=== PATIENT | male | born 1990 | race American Indian/Alaskan Native ===

== ENCOUNTER 2018-11-02 22:48 | Emergency (ER) | payer SELFPAY ==
[2018-11-02 23:38] VITALS: BP 129/67
--- NOTE | 2018-11-03 00:02 | XRay Report ---
FINAL REPORT EXAM: XR CHEST ROUTINE 2V HISTORY: SOB TECHNIQUE: PA and lateral views of the chest were submitted. FINDINGS: The heart size and mediastinum appear normal. There is very mild interstitial prominence with slight thickening of the fissures. There are no localized infiltrates or effusions. The skeletal structures reveal a dextroscoliosis of the lower thoracic spine. IMPRESSION: Mild interstitial prominence with slight thickening of the fissures. Interstitial edema cannot be exc luded. No localized infiltrates otherwise.
[2018-11-03 00:09] LABS: Hematocrit 40.2 % (35.5-45.6); Hemoglobin 13.5 gm/dl (11.8-15.2); Mean Corpuscular HGB Conc 34 % (32-34); Mean Corpuscular Volume 89 fl (84-94); Platelet Count 214 K/mm3 (140-440); Red Blood Count 4.53 M/mm3 (3.65-5.03); Red Cell Distribution Width 13.2 % (13.2-15.2)
--- NOTE | 2018-11-03 00:15 | Emergency Department Report ---
ED Chest Pain HPI - General Chief Complaint: Chest Pain Stated Complaint: SORE THROAT CX PAIN Time Seen by Provider: 11/03/18 00:11 Source: patient Mode of arrival: Ambulatory Limitations: No Limitations - History of Present Illness Initial Comments: This is a 28-year-old male here reports that he is having upper chest pain feels like pressure with shortness of breath 1 month. He said chest pain moves up to front of neck. Chest pain is located mid anterior sternal area. He said it feels sharp and it 6 out of 10 and he said he feels like he cannot breathe and this is been going on for 1 month. Denies any history of blood clots, clotting disorder. Denies any long distance travel by airplane or car for 4 more hours. Denies any swelling to lower extremities. Denies any nausea vomiting, fever or chills. Denies any cough. Denies any medical problems. Denies headache but reports that he went to urgent care, please go and do treat him with doxycycline for respiratory infection but they did not do a chest x-ray. He said since he started taking the doxycycline he started having a runny nose. He denies any back pain or neck pain. Denies any sore throat or earache. No exacerbating or alleviating factor with chest pain. Denies immunocompromise status. Denies any night sweats, coughing up blood, significant weight loss of 20 pounds or more over the last 1-2 months. MD Complaint: chest pain, other (shortness of breath) Onset/Timin -: month(s) Onset: during rest, during exertion Pain Location: substernal Pain Radiation: neck Severity scale (0 -10): 6 Quality: pressure Consistency: intermittent Improves With: nothing Worsens With: nothing Context: other (unknown cause) re: denies: nausea, vomting, diaphoresis, dyspnea, sense of impending doom Other Symptoms: fever (fever a few days ago). denies: cough, syncope, rash, acid taste in mouth, leg swelling, palpitations, burping Treatments Prior to Arrival: other (doxycycline) - Related Data On Oral Contraceptives: No Previous Rx's Medication Instructions Recorded Last Taken Type Cetirizine HCl [ZyrTEC] 10 mg PO QAM 14 Days #14 capsule 11/03/18 Unknown Rx Allergies Allergy/AdvReac Type Severity Reaction Status Date / Time No Known Allergies Allergy Unverified 11/02/18 23:38 Heart Score - HEART Score History: Slightly suspicious EKG: Normal Age: < 45 Risk factors: No known risk factors Troponin: < normal limit HEART Score: 0 - Critical Actions Critical Actions: 0-3 pts:0.9-1.7%risk of adverse cardiac event.Candidate for discharge ED Review of Systems ROS: Stated complaint: SORE THROAT CX PAIN Other details as noted in HPI Constitutional: fever. denies: chills, weakness Eyes: denies: eye pain, eye discharge ENT: congestion (nasal drainage). denies: ear pain, throat pain, hearing loss, epistaxis Respiratory: shortness of breath, SOB with exertion, SOB at rest. denies: cough, stridor, wheezing Cardiovascular: chest pain. denies: palpitations, dyspnea on exertion, edema, syncope Gastrointestinal: denies: abdominal pain, nausea, vomiting, diarrhea, constipation, hematemesis, hematochezia Genitourinary: denies: urgency, dysuria, frequency, hematuria Musculoskeletal: denies: back pain, joint swelling, arthralgia, myalgia Skin: denies: rash Neurological: denies: headache, numbness, paresthesias, confusion, abnormal gait, vertigo ED Past Medical Hx - Past Medical History Previous Medical History?: No - Surgical History Past Surgical History?: No - Family History Family history: no significant - Social History Smoking Status: Never Smoker Substance Use Type: None - Medications Home Medications: Home Medications Medication Instructions Recorded Confirmed Last Taken Type Cetirizine HCl [ZyrTEC] 10 mg PO QAM 14 Days #14 capsule 11/03/18 Unknown Rx ED Physical Exam - General Limitations: No Limitations General appearance: alert, in no apparent distress - Head Head exam: Present: atraumatic, normocephalic, normal inspection, other (normal exam) - Eye Eye exam: Present: normal appearance, PERRL, EOMI Pupils: Present: normal accommodation - ENT ENT exam: Present: normal exam, normal orophraynx, mucous membranes moist, normal external ear exam, other (bilateral sinuses nontender to palpate and nasal mucosa with clear drainage without any erythema.). Absent: TM's normal bilaterally (bilateral TM congested without erythema) - Neck Neck exam: Present: normal inspection, full ROM, lymphadenopathy (anterior and posterior lymph node chains enlarged), other (no C-spine tenderness). Absent: tenderness, meningismus - Respiratory Respiratory exam: Present: normal lung sounds bilaterally, other (no cough. Peak flow 650 which was done by respiratory therapist and documented). Absent: respiratory distress, wheezes, rales, rhonchi, stridor, chest wall tenderness, accessory muscle use, decreased breath sounds, prolonged expiratory - Cardiovascular Cardiovascular Exam: Present: regular rate, normal rhythm, normal heart sounds. Absent: systolic murmur, diastolic murmur - GI/Abdominal GI/Abdominal exam: Present: soft, normal bowel sounds. Absent: distended, tenderness, rigid - Extremities Exam Extremities exam: Present: normal inspection, full ROM, normal capillary refill, other (No cce. + 2 pulses in all extremities, no neurovascular compromise). Absent: tenderness, pedal edema, joint swelling, calf tenderness - Back Exam Back exam: Present: normal inspection, full ROM, other (embolism without any difficulties). Absent: tenderness, muscle spasm, rash noted - Neurological Exam Neurological exam: Present: alert, oriented X3, normal gait - Psychiatric Psychiatric exam: Present: normal affect, normal mood - Skin Skin exam: Present: warm, dry, intact, normal color. Absent: rash ED Course Vital Signs 11/02/18 11/03/18 23:18 02:37 Temperature 98.1 F Pulse Rate 73 78 Respiratory 16 16 Rate Blood Pressure 129/67 O2 Sat by Pulse 98 99 Oximetry Respiratory peak flow is at 650 - Reevaluation(s) Reevaluation #1: 11/03/18 00:48 Patient given Motrin 800 mg in the ER for pain. Follow-up with Dr. Ortiz regarding inpatient presentation and x-ray findings and d-dimer added along with BNP. Flu tests sent Reevaluation #2: 11/03/18 01:58 Patient is stable and no respiratory distress at present. BNP is stable, d- dimer normal, CBC and CMP stable. ISIDRO score - Isidro Score Age > 65: (0) No Aspirin use within the Past 7 Days: (0) No 3 or more CAD Risk Factors: (0) No 2 or more Angina events in past 24 hrs: (0) No Known CAD with more than 50% Stenosis: (0) No Elevated Cardiac Markers: (0) No ST Deviation Greater than 0.5mm: (0) No ISIDRO Score: 0 ED Medical Decision Making - Lab Data Result diagrams: 11/02/18 23:55 11/02/18 23:55 Lab Results 11/02/18 11/02/18 11/03/18 Range/Units 23:55 23:55 00:23 WBC 4.5 (4.5-11.0) K/mm3 RBC 4.53 (3.65-5.03) M/mm3 Hgb 13.5 (11.8-15.2) gm/dl Hct 40.2 (35.5-45.6) % MCV 89 (84-94) fl MCH 30 (28-32) pg MCHC 34 (32-34) % RDW 13.2 (13.2-15.2) % Plt Count 214 (140-440) K/mm3 Add Manual Diff Complete Total Counted 100 Seg Neuts % (Manual) 46.0 (40.0-70.0) % Band Neutrophils % 0 % Lymphocytes % (Manual) 41.0 H (13.4-35.0) % Reactive Lymphs % (Man) 0 % Monocytes % (Manual) 8.0 H (0.0-7.3) % Eosinophils % (Manual) 4.0 (0.0-4.3) % Basophils % (Manual) 1.0 (0.0-1.8) % Metamyelocytes % 0 % Myelocytes % 0 % Promyelocytes % 0 % Blast Cells % 0 % Nucleated RBC % Not Reportable Seg Neutrophils # Man 2.1 (1.8-7.7) K/mm3 Band Neutrophils # 0.0 K/mm3 Lymphocytes # (Manual) 1.8 (1.2-5.4) K/mm3 Abs React Lymphs (Man) 0.0 K/mm3 Monocytes # (Manual) 0.4 (0.0-0.8) K/mm3 Eosinophils # (Manual) 0.2 (0.0-0.4) K/mm3 Basophils # (Manual) 0.0 (0.0-0.1) K/mm3 Metamyelocytes # 0.0 K/mm3 Myelocytes # 0.0 K/mm3 Promyelocytes # 0.0 K/mm3 Blast Cells # 0.0 K/mm3 WBC Morphology Not Reportable Hypersegmented Neuts Not Reportable Hyposegmented Neuts Not Reportable Hypogranular Neuts Not Reportable Smudge Cells Not Reportable Toxic Granulation Not Reportable Toxic Vacuolation Not Reportable Dohle Bodies Not Reportable Pelger-Huet Anomaly Not Reportable Jacek Rods Not Reportable Platelet Estimate Appears normal Clumped Platelets Not Reportable Plt Clumps, EDTA Not Reportable Large Platelets Not Reportable Giant Platelets Not Reportable Platelet Satelliting Not Reportable Plt Morphology Comment Not Reportable RBC Morphology Normal Dimorphic RBCs Not Reportable Polychromasia Not Reportable Hypochromasia Not Reportable Poikilocytosis Not Reportable Anisocytosis Not Reportable Microcytosis Not Reportable Macrocytosis Not Reportable Spherocytes Not Reportable Pappenheimer Bodies Not Reportable Sickle Cells Not Reportable Target Cells Not Reportable Tear Drop Cells Not Reportable Ovalocytes Not Reportable Helmet Cells Not Reportable [place] Bodies Not Reportable [place] Rings Not Reportable [place] Cells Not Reportable Bite Cells Not Reportable Crenated Cell Not Reportable Elliptocytes Not Reportable Acanthocytes (Spur) Not Reportable Rouleaux Not Reportable Hemoglobin C Crystals Not Reportable Schistocytes Not Reportable Malaria parasites Not Reportable Brad Bodies Not Reportable Hem Pathologist Commnt No D-Dimer 136.97 (0-234) ng/mlDDU Sodium 141 (137-145) mmol/L Potassium 4.3 (3.6-5.0) mmol/L Chloride 102.8 (98-107) mmol/L Carbon Dioxide 30 (22-30) mmol/L Anion Gap 13 mmol/L BUN 7 L (9-20) mg/dL Creatinine 0.8 (0.8-1.5) mg/dL Estimated GFR > 60 ml/min BUN/Creatinine Ratio 9 % Glucose 87 (75-100) mg/dL Calcium 9.3 (8.4-10.2) mg/dL Total Bilirubin (0.1-1.2) mg/dL Direct Bilirubin (0-0.2) mg/dL Indirect Bilirubin mg/dL AST (5-40) units/L ALT (7-56) units/L Alkaline Phosphatase (35-129) units/L Troponin T < 0.010 (0.00-0.029) ng/mL NT-Pro-B Natriuret Pep (0-450) pg/mL Total Protein (6.3-8.2) g/dL Albumin (3.9-5) g/dL Albumin/Globulin Ratio % 11/03/18 11/03/18 Range/Units 00:23 00:23 WBC (4.5-11.0) K/mm3 RBC (3.65-5.03) M/mm3 Hgb (11.8-15.2) gm/dl Hct (35.5-45.6) % MCV (84-94) fl MCH (28-32) pg MCHC (32-34) % RDW (13.2-15.2) % Plt Count (140-440) K/mm3 Add Manual Diff Total Counted Seg Neuts % (Manual) (40.0-70.0) % Band Neutrophils % % Lymphocytes % (Manual) (13.4-35.0) % Reactive Lymphs % (Man) % Monocytes % (Manual) (0.0-7.3) % Eosinophils % (Manual) (0.0-4.3) % Basophils % (Manual) (0.0-1.8) % Metamyelocytes % % Myelocytes % % Promyelocytes % % Blast Cells % % Nucleated RBC % Seg Neutrophils # Man (1.8-7.7) K/mm3 Band Neutrophils # K/mm3 Lymphocytes # (Manual) (1.2-5.4) K/mm3 Abs React Lymphs (Man) K/mm3 Monocytes # (Manual) (0.0-0.8) K/mm3 Eosinophils # (Manual) (0.0-0.4) K/mm3 Basophils # (Manual) (0.0-0.1) K/mm3 Metamyelocytes # K/mm3 Myelocytes # K/mm3 Promyelocytes # K/mm3 Blast Cells # K/mm3 WBC Morphology Hypersegmented Neuts Hyposegmented Neuts Hypogranular Neuts Smudge Cells Toxic Granulation Toxic Vacuolation Dohle Bodies Pelger-Huet Anomaly Jacek Rods Platelet Estimate Clumped Platelets Plt Clumps, EDTA Large Platelets Giant Platelets Platelet Satelliting Plt Morphology Comment RBC Morphology Dimorphic RBCs Polychromasia Hypochromasia Poikilocytosis Anisocytosis Microcytosis Macrocytosis Spherocytes Pappenheimer Bodies Sickle Cells Target Cells Tear Drop Cells Ovalocytes Helmet Cells Voss-[place] Bodies [place] Rings [place] Cells Bite Cells Crenated Cell Elliptocytes Acanthocytes (Spur) Rouleaux Hemoglobin C Crystals Schistocytes Malaria parasites Brad Bodies Hem Pathologist Commnt D-Dimer (0-234) ng/mlDDU Sodium (137-145) mmol/L Potassium (3.6-5.0) mmol/L Chloride (98-107) mmol/L Carbon Dioxide (22-30) mmol/L Anion Gap mmol/L BUN (9-20) mg/dL Creatinine (0.8-1.5) mg/dL Estimated GFR ml/min BUN/Creatinine Ratio % Glucose (75-100) mg/dL Calcium (8.4-10.2) mg/dL Total Bilirubin 0.20 (0.1-1.2) mg/dL Direct Bilirubin < 0.2 (0-0.2) mg/dL Indirect Bilirubin 0.0 mg/dL AST 21 (5-40) units/L ALT 14 (7-56) units/L Alkaline Phosphatase 63 (35-129) units/L Troponin T (0.00-0.029) ng/mL NT-Pro-B Natriuret Pep < 5 (0-450) pg/mL Total Protein 7.1 (6.3-8.2) g/dL Albumin 4.2 (3.9-5) g/dL Albumin/Globulin Ratio 1.4 % - EKG Data -: EKG Interpreted by Me (attending physician) EKG shows normal: sinus rhythm Rate: normal (75 bpm) - EKG Data Interpretation: no acute changes, normal EKG - Radiology Data Radiology results: report reviewed Chest x-ray dictated by radiologist and report reviewed by myself. Please see results below. Findings [facility] [address] [place] [address] XRay Report Signed Patient: ERNESTINE WREN MR#: [id number] : 1990 Acct:[id number] Age/Sex: 28 / M ADM Date: 11/02/18 Loc: ED Attending Dr: Ordering Physician: GOMEZ DOLAN MD Date of Service: 11/02/18 Procedure(s): XR chest routine 2V Accession Number(s): [id number] cc: ED MD KELSI Fluoro Time In Minutes: FINAL REPORT EXAM: XR CHEST ROUTINE 2V HISTORY: SOB TECHNIQUE: PA and lateral views of the chest were submitted. FINDINGS: The heart size and mediastinum appear normal. There is very mild interstitial prominence with slight thickening of the fissures. There are no localized infiltrates or effusions. The skeletal structures reveal a dextroscoliosis of the lower thoracic spine. IMPRESSION: Mild interstitial prominence with slight thickening of the fissures. Interstitial edema cannot be excluded. No localized infiltrates otherwise. Transcribed By: RB Dictated By: EMORY ADAMS MD Electronically Authenticated By: EMORY ADAMS MD Signed Date/Time: 11/03/18 0002 DD/ 0003 TD/TT: 11/03/18 0003 - Medical Decision Making This is a 28-year-old male here reported that he is had shortness of breath and chest pain to his mid chest for over month. He said he went to urgent care a few days ago and it put him on doxycycline. Patient said that his nose started running after started on doxycycline and he is here to be checked. CBC, CMP, BNP and d-dimer are stable. Troponin level normal. EKG sinus rhythm with no acute findings. Patient had chest x-ray done. Patient's chest x-ray shows Mild interstitial prominence with slight thickening of the fissures. Interstitial edema cannot be excluded. No localized infiltrates otherwise. Respiratory therapist did peak flow and patient was at 650. Physical findings for nasal congestion with runny nose and anterior and posterior cervical lymph nodes enlar gement. Patient denies any immunocompromise problems. I discussed with him his lab work, chest x-ray and clinical findings. He does have access to primary care but he does not have a primary care doctor so I will refer him to on-call primary care doctor for further evaluation and also to pulmonary. Patient given Motrin 800 mg or chest pain and he states that he feels better he is not short of breath at present. He is not having any pain. I discussed with him that he needs to have STD testing to include HIV test at primary care doctor and that he should call earlier this morning to schedule an appointment for initial evaluation for new patient. I also told him that he needs to let him know that he needs to have STD testing done. He voiced understanding. Patient discharged home in stable condition, vital signs stable afebrile and he was instructed to continue with doxycycline until complete and started taking Zyrtec to help to decrease nasal drainage and ear congestion. He voiced understanding . Influenza test is not back and patient studies. Go home and did not want to axel t for test. - Differential Diagnosis PNA, bronchitis, URI with cough and congestion, viral syndrome Critical care attestation.: If time is entered above; I have spent that time in minutes in the direct care of this critically ill patient, excluding procedure time. ED Disposition Clinical Impression: Acute viral syndrome, Cervical lymphadenopathy, Atypical chest pain, Shortness of breath Disposition: TO HOME OR SELFCARE Is pt being admited?: No Does the pt Need Aspirin: No Condition: Stable Instructions: Chest Pain (ED), Lymphadenopathy (ED), Viral Syndrome (ED), Dy spnea (ED) Additional Instructions: Please follow up with primary care doctor in 3 days and also follow up with lung doctor in 3 days. Call this morning to schedule an appointment. He needs to rest and increase her fluid intake and take vitamin C as this appears to be a virus and she needs increase fluid intake and rest to build your immune system back up. Take Zyrtec for nasal drainage and ear congestion and continue to take doxycycline. If your condition worsens, return to the emergency room Prescriptions: Cetirizine HCl [ZyrTEC] 10 mg PO QAM 14 Days #14 capsule Referrals: PRIMARY CARE, [Referring] - 3-5 Days GEORGETTE UMANA DO [Primary Care Provider] - 11/06/18 NELLI JAVIER MD [Staff Physician] - 11/06/18 Forms: Work/School Release Form(ED)
[2018-11-03 00:29] LABS: BUN/Creatinine Ratio 9; Blood Urea Nitrogen 7 mg/dL (9-20); Calcium 9.3 mg/dL (8.4-10.2); Hemolysis Index 19
[2018-11-03] MEDS ORDERED: IBUPROFEN PO ONE (00:29)
[2018-11-03 00:40] LABS: Total Cells Counted 100
[2018-11-03 00:41] LABS: RBC Morphology Normal
[2018-11-03 00:57] LABS: Alanine Aminotransferase 14 units/L (7-56); Albumin 4.2 g/dL (3.9-5)
[2018-11-03 01:00] LABS: Bilirubin,Direct < 0.2 mg/dL (0-0.2)
== END 2018-11-03 02:37 | disposition home or self-care (01) ==
LOC: ED 22:48
DX: B34.9 Viral infection, unspecified (principal); R59.1 Generalized enlarged lymph nodes; R07.89 Other chest pain
CPT/HCPCS: 36415; 71046; 80048; 80076; 83880; 84484; 85007; 85025; 85379; 87400; 93005; 93010